=== PATIENT | male | born 1985 | race Caucasian/White ===

== ENCOUNTER 2016-09-18 07:58 | Emergency (ER) | payer BC ==
--- NOTE | 2016-09-18 08:55 | ER PHYSICIAN DOCUMENTATION ---
Physician Documentation [facility] Name:Jackson Ugarte Age:30 yrs Sex:Male :1985 Arrival Date:09/18/2016 Time:07:58 Bed2 Private MD: Hira Alvarado Disposition: 09/18/16 08:46 Discharged to Home/Self Care. Impression: Viral Pharyngitis. - Condition is Good. - Discharge Instructions: PHARYNGITIS, Report Pending. - Medical Reconciliation form form. - Follow up: Private Physician; When: As needed; Reason: Continuance of care. - Problem is new. - Symptoms have improved. HPI: 09/18 11:52 This 30 yrs old Male presents to ER via Walk In with complaints of Sore jm Throat. 11:52 The patient presents with sore throat. The patient describes throat pain as raw, jm scratchy. Onset: The symptom(s)/episode began/occurred yesterday, and became worse today. Historical: - Allergies: No known drug Allergies; - Home Meds: 1. None - PMHx: None; - PSHx: NA; - Tetanus: Other NA today. - Ebola Screening: : No symptoms or risks identified at this time. . - Immunization history: Flu Vaccine None. - Social history: Smoking status: Patient states was never smoker of tobacco. Patient uses alcohol occasionally. marijuana. ROS: 11:52 Constitutional: Negative for fever. jm 11:52 ENT: Positive for sinus pain. 11:52 Neck: Negative for stiffness, swelling. Exam: 11:52 ENT: Posterior pharynx: Airway: normal, Tonsils: bilaterally enlarged, with erythema, jm with exudate, no ulcerations, Uvula: midline, Voice: is normal. 11:52 Neck: ROM/movement: is normal, Lymph nodes: no appreciated lymphadenopathy. 11:52 Cardiovascular: Rate: normal, Rhythm: regular. Vital Signs: 08:09 BP 109 / 80; Pulse 108; Resp 20; Temp 98.2(O); Pulse Ox 94% ; Weight 81.65 kg (R); arc Height 5 ft. 8 in. (172.72 cm) (R); Pain 2/10; 08:09 Body Mass Index 27.37 (81.65 kg, 172.72 cm) arc MDM: 08:41 Patient medically screened. jm 11:56 Differential diagnosis: group A strep tonsillitis, pharyngitis. Data reviewed: vital jm signs, nurses notes, lab test result(s), and as a result, I will discharge patient. Counseling: I had a detailed discussion with the patient and/or guardian regarding: the historical points, exam findings, and any diagnostic results supporting the discharge/admit diagnosis, the need for outpatient follow up, with the patient's primary care provider. ED course: Tonsils look painful. Will given dexamethasone and await clx results as rapid was negative. . 02 08:27 Order name: RAPID STREP SCRN CUL IF NEG EDMS Dispensed Medications: 08:47 Drug: Dexamethasone 8 mg; Route: PO; nf 11:22 Follow up: Response: Medication administered at discharge. nf Signatures: Breanna Pardo, RN RN nf Hira Tobias MD MD jm
--- NOTE | 2016-09-18 08:55 | ER NURSING DOCUMENTATION ---
Nurse's Notes [facility] Name:Jackson Ugarte Age:30 yrs Sex:Male :1985 Arrival Date:09/18/2016 Time:07:58 Bed2 Private MD: Diagnosis:Viral Pharyngitis Presentation: 09/18 08:01 Acuity: YNES 4 nf 08:03 Transition of care: patient was not received from another setting of care. nf 08:03 Method Of Arrival: Walk In nf 08:16 Presenting complaint: Patient states: sore throat since yesterday, fever yesterday only.nf 08:35 Notified ED Physician of Jatinder Rg notified. nf Triage Assessment: 08:17 General: Appears in no apparent distress, well nourished, well groomed, Behavior is nf pleasant. Pain: Complains of pain in throat, especially when swallowing. EENT: Throat is reddened has patchy exudate on right Reports worsening pain with swallowing. EENT: Historical: - Allergies: No known drug Allergies; - Home Meds: 1. None - PMHx: None; - PSHx: NA; - Tetanus: Other NA today. - Ebola Screening: : No symptoms or risks identified at this time. . - Immunization history: Flu Vaccine None. - Social history: Smoking status: Patient states was never smoker of tobacco. Patient uses alcohol occasionally. marijuana. Screenin:19 Infectious Disease Risk None. Abuse screen: Denies threats or abuse. Nutritional nf screening: No deficits noted. Assessment: 08:19 See Triage Assessment done by same RN. Respiratory: Airway is patent Respiratory effort nf is even, unlabored, Breath sounds are clear bilaterally. Vital Signs: 08:09 BP 109 / 80; Pulse 108; Resp 20; Temp 98.2(O); Pulse Ox 94% ; Weight 81.65 kg (R); arc Height 5 ft. 8 in. (172.72 cm) (R); Pain 2/10; 08:09 Body Mass Index 27.37 (81.65 kg, 172.72 cm) arc ED Course: 08:01 Patient arrived in ED. arc 08:01 Breanna Pardo, RN is Primary Nurse. nf 08:01 Triage completed. nf 08:10 Strep culture sent to lab. rapid strep and culture swab. nf 08:15 Valuables Remains with patient Bed in low position. Call light in reach. Side rails up nf X 1. Door closed. Noise minimized. Lights dimmed. Moved to private room. Verbal reassurance given. Pillow given. Diet: Patient given water. 08:41 Hira Tobias MD is Attending Physician. alejandra Administered Medications: 08:47 Drug: Dexamethasone 8 mg; Route: PO; nf 11:22 Follow up: Response: Medication administered at discharge. nf Outcome: 08:46 Discharge ordered by . alejandra 08:53 Discharged to home ambulatory. nf 08:53 Condition: stable 08:53 Discharge Assessment: Patient awake, alert and oriented x 3. No cognitive and/or functional deficits noted. Patient verbalized understanding of disposition instructions. 08:53 Instructed on discharge instructions, Demonstrated understanding of instructions, medications. 08:54 Patient left the ED. nf 09/19 13:22 Discharge F/U Call: Spoke with: patient. Overall Care on a scale of 1-10 with 10 ma being the best care, you rate our care as: Other comments: States care was just fine and he is feeling better Signatures: Anali Chicas, Breanna Patel RN, ma, Hira Rhodes RN, MD MD jm Chew, Ludmila, Reg Reg arc
[2016-09-18] MEDS ORDERED: DEXAMETHASONE 4 MG TABLET PO ONE (08:58)
== END 2016-09-18 08:54 | disposition home or self-care (01) ==
LOC: ER 07:58
DX: J02.8 Acute pharyngitis due to other specified organisms (principal); J35.1 Hypertrophy of tonsils
CPT/HCPCS: 86403; 87081; 99283